=== PATIENT | female | born 1955 | race Hispanic/Latino ===

== ENCOUNTER 2018-02-27 15:13 | Emergency (ER) | payer OTHER ==
[2018-02-27 15:15] VITALS: BMI 34.9
--- NOTE | 2018-02-27 15:22 | ED PDOC ---
Arrival/HPI - General Historian: Patient - History of Present Illness Time/Duration: Prior to Arrival - General Chief Complaint: Weakness/Neurological Deficit Time Seen by Provider: 02/27/18 15:15 - History of Present Illness Narrative History of Present Illness (Text): 02/27/18 15:20 62 F history of hypertension presenting with complaints of left sided facial droop with right tongue deviation. Patient states she noticed these symptoms this morning around 9:30 when she was on her way to [place] from [place]. Patient states before leaving with the cruise she wanted to just double check with a physician that she was ok. To note patient states she noticed the past two days that she would drool slightly when chewing gum but didn't really pay much attention to it. Patient likens the sensation on her lip to a fever blister and likens her facial sensation to that of facial swelling. Patient denies dominguez's palsy diagnosis in the past. Patient is noted to have left eye ptosis which she states has been progressive within the past two years. Patient denies weakness in her upper and lower extremities as well as numbness or tingling in her face, upper extremities or lower extremities. PMD: Dr. Feldman PMH: Hypothyroidism, hypertension Surgical history: cholecystectomy, right knee athroscopy Allergies: denies Family history: Father-TIA, Mother- Extensive CAD (William Bullock) Past Medical History - Provider Review Nursing Documentation Reviewed: Yes - Infectious Disease Hx of Infectious Diseases: None Family/Social History - Physician Review Nursing Documentation Reviewed: Yes Family/Social History: Other (father-TIA, Mother-CAD) Allergies/Home Meds Allergies/Adverse Reactions: Allergies loracarbef [From Lorabid] Allergy (Verified 02/27/18 15:23) ANAPHYLAXIS moxifloxacin [From Avelox] Allergy (Verified 02/27/18 15:23) ANAPHYLAXIS antihistamines Allergy (Uncoded 02/27/18 15:23) ANAPHYLAXIS Review of Systems - Physician Review All systems were reviewed & negative as marked: Yes - Review of Systems Constitutional: absent: Fatigue, Fevers Eyes: Vision Changes (chronic vision changes in left eye) ENT: Tinnitus, TMJ Pain. absent: Hearing Changes, Rhinorrhea Respiratory: absent: SOB, Cough, Sputum Cardiovascular: absent: Chest Pain, Palpitations Gastrointestinal: absent: Abdominal Pain, Diarrhea, Nausea, Vomiting Neurological: absent: Headache, Dizziness Psychiatric: absent: Anxiety Physical Exam Vital Signs Reviewed: Yes Temperature: Afebrile Blood Pressure: Hypertensive Pulse: Regular Respiratory Rate: Normal Appearance: Positive for: Comfortable Pain Distress: None Mental Status: Positive for: Alert and Oriented X 3 Finger Stick Blood Glucose: 145 - Systems Exam Head: Present: Atraumatic, Normocephalic Pupils: Present: PERRL Extroacular Muscles: Present: EOMI Conjunctiva: Present: Normal Mouth: Present: Moist Mucous Membranes Neck: Present: Normal Range of Motion Respiratory/Chest: Present: Clear to Auscultation, Good Air Exchange. No: Accessory Muscle Use, Wheezes, Rhonchi Cardiovascular: Present: Regular Rate and Rhythm, Normal S1, S2. No: Murmurs Abdomen: Present: Normal Bowel Sounds. No: Tenderness, Distention Upper Extremity: Present: Normal Inspection. No: Edema Lower Extremity: Present: Normal Inspection. No: Edema Neurological: Present: GCS=15, CN II-XII Intact, Speech Normal Skin: Present: Warm, Normal Color Psychiatric: Present: Alert, Oriented x 3, Normal Insight, Normal Concentration Vital Signs Temp Pulse Resp BP Pulse Ox 02/27/18 19:38 61 18 144/75 99 02/27/18 19:05 98.0 F 80 19 99 02/27/18 15:19 98.2 F 79 24 97 Medical Decision Making Re-evaluation Time: 21:00 Reassessment Condition: Improving,but remains with symptoms - Lab Interpretations Interpretation: No clinic. lab abnormalty - EKG Interpretation Interpreted by ED Physician: Yes Type: 12 lead EKG ED Course and Treatment: Patient Seen With Resident: In agreement with resident note which contains more details about the patient. Patient was seen and evaluated with resident. Came up with plan and treatment together. A 62 year old female with left sided facial droop with right tongue deviation. Additional HPI as noted by resident. Ordered CT head, Chest X-ray, labs and Urinalysis. (James Rdz) MRI brain, MRA head and neck ordered; results pending and Aspirin given as per Neurology 02/27/18 19:23 MRI Brain Brain: There is no restricted diffusion within the brain to suggest acute ischemic change. There is a small focus of increased signal intensity on the diffusion sequence involving the left frontal cortex on series 4 image 19. There is no abnormal signal intensity on the remaining sequences. This is likely contributed by artifact, with subacute ischemic change considered less likely. There are several small foci of high FLAIR signal intensity within the cerebral white matter. There is no mass effect or restricted diffusion associated with these foci. In a patient this age, this likely represents chronic small vessel ischemic disease. No cerebral edema. No magnetic susceptibility intracerebral hemosiderin is visualized. Ventricles: There is mild prominence of the ventricles and sulci, compatible with atrophy. Bones/joints: No acute abnormality. Sinuses: Magnetic susceptibility artifact limits evaluation of the inferior right maxillary sinus. There is a small air-fluid level within the left maxillary sinus. A small air fluid levels also seen in the region of the sphenoid sinuses. Mastoid air cells: No mastoid effusion. Orbits: No acute abnormality, as visualized. IMPRESSION: 1. There is no restricted diffusion within the brain to suggest acute ischemic change. There is a small focus of increased signal intensity on the diffusion sequence involving the left frontal cortex on series 4 image 19. This is likely contributed by artifact, with subacute ischemic change considered less likely. 2. There are several small foci of high FLAIR signal intensity within the cerebral white matter. In a patient this age, this likely represents chronic small vessel ischemic disease. 3. Mild atrophy. 4. Paranasal sinus disease is noted above. MRA Head FINDINGS: Right internal carotid artery: No acute findings. Intracranial segment is patent with no significant stenosis. No aneurysm. Right anterior cerebral artery: No occlusion or significant stenosis. No aneurysm. Right middle cerebral artery: No occlusion or significant stenosis. No aneurysm. Right posterior cerebral artery: No occlusion or significant stenosis. No aneurysm. Right vertebral artery: No occlusion or significant stenosis. Left internal carotid artery: No acute findings. Intracranial segment is patent with no significant stenosis. No aneurysm. 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 No aneurysm. Left middle cerebral artery: No occlusion or significant stenosis. No aneurysm. Left posterior cerebral artery: No occlusion or significant stenosis. No aneurysm. Left vertebral artery: No occlusion or significant stenosis. Basilar artery: The basilar artery is mildly decreased in caliber, without focal stenosis or occlusion. No aneurysm. IMPRESSION: 1. 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 2. Additional findings described above. MRA Neck FINDINGS: Right common carotid artery: No significant stenosis distally. Artifact limits evaluation of the remaining common carotid artery, without occlusion. Right internal carotid artery: Artifact limits evaluation of the proximal right internal carotid artery, without hemodynamically significant stenosis or occlusion. Artifact limits evaluation of the mid to distal extracranial internal carotid arteries, without occlusion. There is significant artifact involving the bilateral petrous internal carotid arteries, but these vessels are patent and correlated with the MR a head from the same day. Right external carotid artery: No occlusion. Right vertebral artery: The bilateral vertebral arteries are patent as visualized on the 3-D time-offlight images. The vertebral arteries are incompletely visualized on the 3-D time-of- flight images. Artifact significantly limits evaluation of the proximal vertebral arteries as well as the distal V3/proximal V4 segments bilaterally. Left common carotid artery: No significant stenosis distally. Artifact limits evaluation of the remaining common carotid artery, with the proximal left common carotid artery extending out of the field of view of this study. Left internal carotid artery: There is no significant stenosis or occlusion of the proximal left internal carotid artery. See above. Left external carotid artery: No occlusion. Left vertebral artery: See above. IMPRESSION: 1. There is no hemodynamically significant stenosis or occlusion of the proximal internal carotid arteries bilaterally. 2. Limitations of the study are described above. Discussed with Neurology the findings of MRI brain and MRA head & neck. States patient can be discharged with aspirin considering the MRI and MRAs demonstrate so evidence of stroke, and patient may follow up with PMD and get referrals for outpatient Neurology. As discussed with patient regarding findings on MRA of sinuses; patient should also follow up with ENT considering she in the past has had clinical symptoms. Patient and advised to follow up with PMD and not return to [facility] cruise. (William Bullock) - Lab Interpretations Lab Results: 02/27/18 15:35 02/27/18 15:35 Lab Results 02/27/18 15:35: Hemoglobin A1c 5.8 02/27/18 15:35: Sodium 146, Potassium 4.3, Chloride 109 H, Carbon Dioxide 24, Anion Gap 17, BUN 16, Creatinine 1.0, Est GFR ( Amer) > 60, Est GFR (Non- Af Amer) 56, Random Glucose 150 H, Calcium 9.4, Phosphorus 3.5, Magnesium 2.1, Total Bilirubin 0.6, AST 57 H, ALT 97 H, Alkaline Phosphatase 54, Troponin I < 0.01, Total Protein 8.0, Albumin 4.3, Globulin 3.6, Albumin/Globulin Ratio 1.2 02/27/18 15:35: PT 12.2, INR 1.07, APTT 30.5 02/27/18 15:35: WBC 7.5, RBC 4.55, Hgb 14.2, Hct 41.1, MCV 90.3, MCH 31.2, MCHC 34.5, RDW 13.3, Plt Count 184, MPV 9.5, Gran % 74.1 H, Lymph % (Auto) 18.5 L, [place] % (Auto) 5.6, Eos % (Auto) 1.5, Baso % (Auto) 0.3, Gran # 5.53, Lymph # ( Auto) 1.4, [place] # (Auto) 0.4, Eos # (Auto) 0.1, Baso # (Auto) 0.02 - RAD Interpretation Radiology Orders: 02/27/18 15:24 HEAD W/O (CODE STROKE) [CT] Stat CHEST PORTABLE [RAD] Stat 02/27/18 16:19 BRAIN WITHOUT CONTRAST [MRI] Stat 02/27/18 16:49 MRA HEAD WITHOUT CONTRAST [MRI] Stat MRA NECK WITHOUT CONTRAST [MRI] Stat - Medication Orders Current Medication Orders: Discontinued Medications Aspirin (Ecotrin) 325 mg PO STAT STA Stop: 02/27/18 18:58 Last Admin: 02/27/18 19:35 Dose: 325 mg Lorazepam (Ativan) 1 mg IVP ONCE ONE PRN Reason: Protocol Stop: 02/27/18 16:35 Last Admin: 02/27/18 17:28 Dose: 1 mg IVP Administration Document 02/27/18 17:28 [email or web address] (Rec: 02/27/18 17:28 [email or web address] [id number]) Charges for Administration # of IVP Administrations 1 Disposition/Present on Arrival - Present on Arrival Any Indicators Present on Arrival: No History of DVT/PE: No History of Uncontrolled Diabetes: No Urinary Catheter: No History of Decub. Ulcer: No History Surgical Site Infection Following: None - Disposition Have Diagnosis and Disposition been Completed?: Yes Disposition Time: 21:42 Patient Plan: Discharge - Disposition Diagnosis: Transient ischemic attack (TIA), Dominguez's palsy, Otitis externa Disposition: HOME/ ROUTINE Patient Problems: Current Active Problems Problem Status Onset Dominguez's palsy Acute Transient ischemic attack (TIA) Acute Condition: FAIR Discharge Instructions (ExitCare): Transient Ischemic Attack (DC), Dominguez's Palsy (DC) Additional Instructions: Mrs. Jeffery, thank you for letting us take care of you today. The emergency medical care you received today was directed at your acute symptoms. If you were prescribed any medication, please fill it and take as directed. It may take several days for your symptoms to resolve. Return to the Emergency Department if your symptoms worsen, do not improve, or if you have any other problems. Please contact your doctor or call one of the physicians/clinics you have been referred to that are listed on the Patient Visit Information form that is included in your discharge packet. Bring any paperwork you were given at discharge with you along with any medications you are taking to your follow up visit. Our treatment cannot replace ongoing medical care by a primary care provider (PCP) outside of the emergency department. Please be sure to make follow up with Neurology and ENT regarding MRA findings within 2 days. Thank you for allowing the [facility] team to be part of your care today. Forms: [employer] (Malagasy)
--- NOTE | 2018-02-27 15:35 | CT ---
PROCEDURE: CT HEAD WITHOUT CONTRAST. HISTORY: r/o ICH COMPARISON: None available. TECHNIQUE: Axial computed tomography images were obtained through the head/brain without intravenous contrast. Radiation dose: Total exam DLP = 844 mGy-cm. This CT exam was performed using one or more of the following dose reduction techniques: Automated exposure control, adjustment of the mA and/or kV according to patient size, and/or use of iterative reconstruction technique. FINDINGS: HEMORRHAGE: No intracranial hemorrhage. BRAIN: No mass effect or edema. No atrophy or chronic microvascular ischemic changes. VENTRICLES: Unremarkable. No hydrocephalus. CALVARIUM: Unremarkable. PARANASAL SINUSES: Unremarkable as visualized. No significant inflammatory changes. MASTOID AIR CELLS: Unremarkable as visualized. No inflammatory changes. OTHER FINDINGS: None. IMPRESSION: No acute findings
--- NOTE | 2018-02-27 15:41 | RAD ---
HISTORY: stroke COMPARISON: No prior. FINDINGS: LUNGS: No active pulmonary disease. PLEURA: No significant pleural effusion identified, no pneumothorax apparent. CARDIOVASCULAR: Normal. OSSEOUS STRUCTURES: No significant abnormalities. VISUALIZED UPPER ABDOMEN: Normal. OTHER FINDINGS: None. IMPRESSION: No active disease.
[2018-02-27 15:43] LABS: BASO # 0.02 K/mm3 (0.0-2.0); BASO % 0.3 % (0.0-3.0); EOS # 0.1 (0.0-0.7); EOS % 1.5 % (1.5-5.0); GRAN # 5.53 (1.4-6.5); GRAN % 74.1 % (50.0-68.0); HEMOGLOBIN 14.2 g/dL (12.0-16.0); INR 1.07 (0.93-1.08); LYMPH # 1.4 (1.2-3.4); LYMPH % 18.5 % (22.0-35.0); MEAN CELL VOLUME 90.3 fl (80.0-105.0); MEAN CORPUSCULAR HEMOGLOBIN 31.2 pg (25.0-35.0); MEAN CORPUSCULAR HGB CONC 34.5 g/dl (31.0-37.0); MEAN PLATELET VOLUME 9.5 fl (7.0-11.0); MONO # 0.4 (0.1-0.6); MONO % 5.6 % (1.0-6.0); PARTIAL THROMBOPLASTIN TIME 30.5 Seconds (25.1-36.5); PROTHROMBIN TIME 12.2 SECONDS (9.4-12.5); RBC 4.55 10^6/uL (3.5-6.1); RED CELL DISTRIBUTION WIDTH 13.3 % (11.5-14.5); WHITE BLOOD COUNT 7.5 10^3/ul (4.5-11.0)
[2018-02-27 15:47] LABS: ALB/GLOB RATIO 1.2 (1.1-1.8); ALBUMIN 4.3 g/dL (3.0-4.8); ALT/SGPT 97 U/L (7-56); AST/SGOT 57 U/L (14-36); BLOOD UREA NITROGEN 16 mg/dL (7-21); CALCIUM 9.4 mg/dL (8.4-10.5); GFR AFRICAN-AMERICAN > 60; GFR NON-AFRICAN AMERICAN 56
[2018-02-27 18:30] LABS: TROPONIN I < 0.01 ng/mL
[2018-02-27] MEDS ORDERED: Aspirin 325 mg EC Tablets PO STA (18:57)
[2018-02-27 19:06] VITALS: O2SAT 99
[2018-02-27 19:39] VITALS: RESP 18
--- NOTE | 2018-02-27 20:17 | MRI ---
EXAM: MR Head Without Intravenous Contrast EXAM DATE/TIME: 02/27/2018 4:19 PM CLINICAL HISTORY: The patient age is 62 years old and is female; Signs and symptoms; Weakness, facial; Additional info: Code stroke Facility exam id and description: Mri br s brain without contrast TECHNIQUE: Magnetic resonance images of the head/brain without intravenous contrast in multiple planes. COMPARISON: CT - HEAD W/O (CODE STROKE) 2018-02-27 15:28 FINDINGS: Brain: There is no restricted diffusion within the brain to suggest acute ischemic change. There is a small focus of increased signal intensity on the diffusion sequence involving the left frontal cortex on series 4 image 19. There is no abnormal signal intensity on the remaining sequences. This is likely contributed by artifact, with subacute ischemic change considered less likely. There are several small foci of high FLAIR signal intensity within the cerebral white matter. There is no mass effect or restricted diffusion associated with these foci. In a patient this age, this likely represents chronic small vessel ischemic disease. No cerebral edema. No magnetic susceptibility intracerebral hemosiderin is visualized. Ventricles: There is mild prominence of the ventricles and sulci, compatible with atrophy. Bones/joints: No acute abnormality. Sinuses: Magnetic susceptibility artifact limits evaluation of the inferior right maxillary sinus. There is a small air-fluid level within the left maxillary sinus. A small air fluid levels also seen in the region of the sphenoid sinuses. Mastoid air cells: No mastoid effusion. Orbits: No acute abnormality, as visualized. IMPRESSION: 1. There is no restricted diffusion within the brain to suggest acute ischemic change. There is a small focus of increased signal intensity on the diffusion sequence involving the left frontal cortex on series 4 image 19. This is likely contributed by artifact, with subacute ischemic change considered less likely. 2. There are several small foci of high FLAIR signal intensity within the cerebral white matter. In a patient this age, this likely represents chronic small vessel ischemic disease. 3. Mild atrophy. 4. Paranasal sinus disease is noted above.
--- NOTE | 2018-02-27 20:23 | MRI ---
EXAM: MR Angiography Head Without Intravenous Contrast EXAM DATE/TIME: 02/27/2018 4:49 PM CLINICAL HISTORY: The patient age is 62 years old and is female; Signs and symptoms; Weakness; Additional info: Code stroke Facility exam id and description: Mri mra heads mra head without contrast TECHNIQUE: Magnetic resonance angiography images of the head without intravenous contrast. COMPARISON: CT - HEAD W/O (CODE STROKE) 2018-02-27 15:28 FINDINGS: Right internal carotid artery: No acute findings. Intracranial segment is patent with no significant stenosis. No aneurysm. Right anterior cerebral artery: No occlusion or significant stenosis. No aneurysm. Right middle cerebral artery: No occlusion or significant stenosis. No aneurysm. Right posterior cerebral artery: No occlusion or significant stenosis. No aneurysm. Right vertebral artery: No occlusion or significant stenosis. Left internal carotid artery: No acute findings. Intracranial segment is patent with no significant stenosis. No aneurysm. 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 No aneurysm. Left middle cerebral artery: No occlusion or significant stenosis. No aneurysm. Left posterior cerebral artery: No occlusion or significant stenosis. No aneurysm. Left vertebral artery: No occlusion or significant stenosis. Basilar artery: The basilar artery is mildly decreased in caliber, without focal stenosis or occlusion. No aneurysm. IMPRESSION: 1. 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 2. Additional findings described above.
--- NOTE | 2018-02-27 20:36 | MRI ---
EXAM: MR Angiography Neck Without Intravenous Contrast EXAM DATE/TIME: 02/27/2018 4:49 PM CLINICAL HISTORY: The patient age is 62 years old and is female; Signs and symptoms; Numbness; Patient HX: Left face numbness; Additional info: Code stroke Facility exam id and description: Mri mra necks mra neck without contrast TECHNIQUE: Magnetic resonance angiography images of the neck without intravenous contrast. COMPARISON: MRA HEADS 2018-02-27 18:11 FINDINGS: Right common carotid artery: No significant stenosis distally. Artifact limits evaluation of the remaining common carotid artery, without occlusion. Right internal carotid artery: Artifact limits evaluation of the proximal right internal carotid artery, without hemodynamically significant stenosis or occlusion. Artifact limits evaluation of the mid to distal extracranial internal carotid arteries, without occlusion. There is significant artifact involving the bilateral petrous internal carotid arteries, but these vessels are patent and correlated with the MR a head from the same day. Right external carotid artery: No occlusion. Right vertebral artery: The bilateral vertebral arteries are patent as visualized on the 3-D [id number] images. The vertebral arteries are incompletely visualized on the 3-D [id number] images. Artifact significantly limits evaluation of the proximal vertebral arteries as well as the distal V3/proximal V4 segments bilaterally. Left common carotid artery: No significant stenosis distally. Artifact limits evaluation of the remaining common carotid artery, with the proximal left common carotid artery extending out of the field of view of this study. Left internal carotid artery: There is no significant stenosis or occlusion of the proximal left internal carotid artery. See above. Left external carotid artery: No occlusion. Left vertebral artery: See above. CAROTID STENOSIS REFERENCE USING NASCET CRITERIA: % ICA stenosis = (1 - narrowest ICA diameter/diameter of distal cervical ICA) x 100. Mild - <50% stenosis. Moderate - 50-69% stenosis. Severe - 70-94% stenosis. Near occlusion - 95-99% stenosis. Occluded - 100% stenosis. IMPRESSION: 1. There is no hemodynamically significant stenosis or occlusion of the proximal internal carotid arteries bilaterally. 2. Limitations of the study are described above.
[2018-02-27 22:20] VITALS: BP 144/64; PULSE 72; TEMP 98.2
--- NOTE | 2018-02-28 15:26 | CARD ---
APPROVED REPORT EKG Measurement Heart [id number] MD [id number] <Conclusion> Normal sinus rhythm Normal ECG
== END 2018-02-27 22:21 | disposition home or self-care (01) ==
LOC: ED 15:13
DX: G45.9 Transient cerebral ischemic attack, unspecified (principal); G51.0 Bell's palsy; H60.90 Unspecified otitis externa, unspecified ear
CPT/HCPCS: 70450; 70544; 70547; 70551; 71045; 80053; 83036; 83735; 84100; 84484; 85025; 85610; 85730; 93005; 96374; 99285; J2060